=== PATIENT | male | born 1980 | race Caucasian/White ===

== ENCOUNTER 2020-12-18 07:22 | Emergency (ER) | payer OTHER ==
[~2020-12-18] VITALS: Ht 185.4 cm; Wt 103.4 kg
[2020-12-18] MEDS ORDERED: DULCOLAX10 MG RECTAL (10:17)
== END 2020-12-18 10:28 | disposition home or self-care (01) ==
LOC: ER 07:22
DX: K59.09 Other constipation (principal); R10.2 Pelvic and perineal pain